=== PATIENT | male | born 2000 | race African-American/Black ===

== ENCOUNTER 2025-01-07 10:00 | Emergency (ER) | payer OTHER, SELFPAY ==
[2025-01-07 10:29] VITALS: BP 117/70; PULSE 89; RESP 16; TEMP 36.8; O2SAT 99; BMI 20.2
[2025-01-07 10:54] LABS: Appearance Urine Clear; Color Urine Yellow; Glucose Urine UA Negative (Negative); Leukocyte Esterase Urine Negative (Negative); Nitrite Urine Negative (Negative); Specific Gravity - Urine 1.015 (1.005-1.025); Urine Blood Negative (Negative); Urine Ketones Negative (Negative); Urine Protein Negative (Neg-Trace)
--- NOTE | 2025-01-07 10:58 | ED_ITS ---
HPI - Male Genitourinary General Chief complaint: Urogenital-Male Stated complaint: infection Time Seen by Provider: 01/07/25 10:57 Source: patient Mode of arrival: ambulatory Limitations: no limitations History of Present Illness ED Provider: Yovani Cerda PA-C HPI Narrative: 24-year-old male presents to the ER for evaluation of pain with urination for the last 2 weeks. He reports that he is sexually active with the same female who was seen here yesterday for STI evaluation and treatment. He denies any urethral discharge or drainage. He denies any hematuria, urgency or frequency. No abdominal pain, nausea, vomiting, diarrhea or constipation. He is having normal bowel movements. He denies any genital rash or lesion. No history of STI in the past. MD Complaint: dysuria Onset (ago): week(s) (2) Duration: intermittent Location: penis Severity: moderate Quality: burning Relieving factors: none Exacerbating factors: urination Associated symptoms: Reports denies other symptoms Related Data Sexually active: Yes Previous Rx's ?Medication ?Instructions ?Recorded doxycycline hyclate 100 mg tablet 100 mg PO BID #13 tabs 01/07/25 Allergies Allergy/AdvReac Type Severity Reaction Status Date / Time No Known Allergies Allergy Verified 01/07/25 10:32 Review of Systems Review of Systems: Yes all other systems are reviewed and are negative PMFSH Social History Social History Advance Directives: No Advance Directives Information Provided: Yes Physical Exam Vital Signs: Vital Signs: Last Vital Signs Temp 98.3 F 01/07/25 10:29 Pulse 89 01/07/25 10:29 Resp 16 01/07/25 10:29 BP 117/70 01/07/25 10:29 Pulse Ox 99 01/07/25 10:29 O2 Del Method Room Air 01/07/25 10:29 BMI result Body Mass Index 20.2 Appearance: Alert. Oriented X3. No acute distress. HEENT: normal external inspection Neck: Normal inspection. CVS: Normal heart rate and rhythm. Respiratory: No respiratory distress. Speaking in complete sentences. Abdomen: Soft and nontender. +BS x4 Gu: normal external inspection, uncircumsized penis, no rashes or lesions Skin: Skin warm and dry. Normal skin color. Normal skin turgor. No rashes. Extremities: No lower extremity edema. No joint swelling. Neuro/psych: grossly normal, nonfocal. Medications Administered Discontinued Medications Generic Name Dose Route Start Last Admin Trade Name Tricia PRN Reason Stop Dose Admin Ceftriaxone Sodium 500 mg/ 0 mg 01/07/25 10:58 01/07/25 11:18 Lidocaine HCl 1 ml IM 01/07/25 10:59 1 kit ONCE ONE Administration Doxycycline Monohydrate 100 mg 01/07/25 10:58 01/07/25 11:18 Doxycycline Monohydrate 100 Mg Capsule PO 01/07/25 10:59 100 mg ONCE ONE Administration Medical Decision Making Medical Decision Making [facility] Narrative: 24-year-old [place] speaking male presenting to the ER for evaluation of dysuria for the last 2 weeks. Concern for STI as his partner has complaints as well. She was seen here and empirically started on treatment yesterday per his report. Urinalysis today negative for acute infection. He is agreeable to empiric treatment for gonorrhea and chlamydia. Advised to follow-up with [facility] for additional STI evaluation. [employer] office messenger helper used to interview patient and answered all questions. Stable for discharge home Differential Diagnosis Differential Diagnoses: The differential diagnosis associated with the presentation includes Gonorrhea, chlamydia, syphilis, UTI, interstitial cystitis, herpes Admission/Observation Consideration of admission/observation: Escalation of care including admission/observation considered Lab Data [facility] Lab Attestation statement: I reviewed the patient's lab results. No UTI Labs: Lab Results 01/07/25 Range/Units 10:40 Urine Color Yellow Urine Appearance Clear Urine pH 7.0 (5.0-9.0) Ur Specific [place] 1.015 (1.005-1.025) Urine Protein Negative (Neg-Trace) mg/dL Urine Glucose (UA) Negative (Negative) mg/dL Urine Ketones Negative (Negative) mg/dL Urine Blood Negative (Negative) Urine Nitrite Negative (Negative) Ur Leukocyte Esterase Negative (Negative) Tests considered The following testing was considered but not selected: Testicular ultrasound considered, low suspicion for epididymitis Prescription Management I considered prescription management with: Antibiotic Social Determinants Patient?s care significantly limited by Social Determinants of Health including: Other Social Determinant of Health (No access to PCP) Critical Care Time Critical Care Time Critical Care Time: No Discharge Plan Discharge Clinical Impression: Urethritis Patient Disposition: Home, Self-Care Instructions: Urethritis (ED) Additional Instructions: Take the prescribed antibiotics as directed, complete the entire course and do not miss any doses Follow up with the patient portal so you can check your results We will call you if your tests come back positive. You are being treated for both Gonorrhea and Chlamydia. If you develop new or worsening symptoms call 911 or come back to the ER for further evaluation. Prescriptions: New doxycycline hyclate 100 mg tablet 100 mg PO BID Qty: 13 0RF Discharge Date/Time: 01/07/25 11:45 Print Language: Tarun Wyatt
[2025-01-07] MEDS: cefTRIAXone sodium 500 MG, Lidocaine HCl 1 % MPF 1 ML IM (11:18)
[2025-01-07] MEDS: Doxycycline Monohydrate 100 MG CAPSULE PO (11:18)
== END 2025-01-07 11:45 | disposition home or self-care (01) ==
LOC: HO.ED 11:40
PROVIDERS: Emergency Provider Emergency Medicine
DX: N34.2 Other urethritis (principal); R30.0 Dysuria
CPT/HCPCS: 81003; 96372; 99282; 99284; J0696; J2003